=== PATIENT | female | born 2000 | race Caucasian/White ===

== ENCOUNTER 2022-05-15 09:32 | Outpatient (CLI) | payer OTHER, SELFPAY ==
--- OUTSIDE RECORDS SUMMARY | 2022-05-15 09:36 | XMS_ITS | Clinical Summary ---
:2000 Author Organization [facility] [place] [address] Care Team Providers Name Role Phone Clinic, No Pcp Or Primary Care Provider Unavailable Allergies Active Allergy Reactions Severity Noted Date Comments Pollen Extracts Runny Nose Low 11/17/2020 Medications Medication Sig Dispensed Refills Start Date End Date Status EPINEPHrine Inject 0.3 mg 2 Each 1 10/24/2019 [place] (EPIPEN) 0.3 mg/0.3 intramuscular one mL time if needed for injectionIndication Allergic Reaction for s: Adverse food up to 1 dose. reaction, initial encounter Active Problems No known active problems Immunizations Name Administration Dates Next Due DTaP 01/29/2001, 2000 DTaP-HIB (TriHIBIT) 10/02/2006, 03/12/2006, 01/29/2001, 2000 [id number] (Pediarix) 03/12/2006 HIB-HepB (Comvax) 2000 HPV 9 (Gardasil 9) 04/29/2017, 02/06/2017 Hepatitis B (Peds) 05/27/2006, 03/12/2006, 2000 Inactivated Polio Vaccine 03/12/2006, 01/29/2001, 2000 MMR 11/21/2019, 05/27/2006, 03/12/2006 Meningococcal Vaccine (Menactra) 11/18/2013 Pneumococcal conj 7-Valent (Prevnar 7) 01/29/2001, 1 Tdap 09/16/2019, 11/18/2013 Varicella Vaccine 03/12/2006 Social History Tobacco Use Types Packs/Day Years Used Date Never Smoker Smokeless Tobacco: Never Used Tobacco Cessation: Counseling Given: Yes Alcohol Use Standard Drinks/Week Comments Never 0 (1 standard drink = 0.6 oz pure alcoho l) Alcohol Habits Answer Date Recorded How often do you have a drink containing alcohol? Never 10/24/2019 How many drinks containing alcohol do you have on a typical Not asked day when you are drinking? How often do you have six or more drinks on one occasion? No t asked Comment: Not asked Sex Assigned at Date Recorded Not on file Obstetrics History Para Term AB IAB SAB Ectopic Multiple Living Live Births 1 Date Outcome GA Total Labor/2nd/3rd Weight Sex Delivery Anes PTL Susan A 1 A5 Name Clin Labor Last Filed Vital Signs Vital Sign Reading Time Taken Comments Blood Pressure 98/64 03/17/2021 1:11 PM CDT Pulse 66 03/17/2021 1:11 PM CDT Temperature 37 ??C (98.6 ??F) 03/17/2021 1:11 PM CDT Respiratory Rate 12 03/17/2021 1:11 PM CDT Oxygen Saturation 99% 03/17/2021 1:11 PM CDT Inhaled Oxygen Concentration - - Weight 62.1 kg (137 lb) 03/17/2021 1:11 PM CDT Height - - Body Mass Index - - Plan of Treatment Health Maintenance Due Date Last Done Comments COVID-19 vaccine series (#1) 2000 Depression screening for age 1206/29/2012 12+ HPV series for age 9-26 (3 - 08/30/2017 04/29/2017, 3-dose series) 02/06/2017 BMI (ht and wt on same day) 06/29/2018 for age 18+ Hepatitis C screening for age 1206/29/2018 18-79 Chlamydia for age 16-24 06/19/2021 06/19/2020 Pap test for age 21-65 06/29/2021 Influenza for age 9-49 03/06/2022 Tetanus booster 09/15/2029 09/16/2019, 11/18/2013 Meningococcal series for age Aged Out 11/18/2013 No longer eligible based 11-21 on patient's age to complete this to [facility] Tdap Completed 09/16/2019, 11/18/2013 Results Not on filefrom Last 3 Months Insurance Payer Benefit Plan / Subscriber ID Effective Dates Phone Addre ss Type [facility] [id number] 2018-Presen [address] [place] [address] [facility] [id number] 2020-Present [address] [facility] [place] [address] Care Teams Batch Tester Relationship Specialty Start Date End Date Clinic, No Pcp Or PCP - General 11/17/20 .
[2022-05-15 15:30] LABS: Clue Cells No Clue Cells Seen (None Seen); Trichomonas No Trichomonas Seen (None Seen); Yeast No Yeast Seen (None Seen)
[2022-05-15 15:51] LABS: GC DNA Amplified* NOT DETECTED (No Detected)
[2022-05-15 16:48] LABS: Hepatitis C Virus Antibody* Negative (Negative)
[2022-05-15 16:49] LABS: HIV 1/2/P24 Combo Screen* Negative (Negative)
[2022-05-15 17:05] LABS: Chlamydia DNA Amplified* DETECTED (No Detected)
[2022-05-16 15:37] LABS: Rapid Plasma Reagin (RPR) Non Reactive (Non Reactive)
== END 2022-05-15 09:33 | disposition home or self-care (01) ==
PROVIDERS: PCP Nurse Practitioner Family; Visit Provider Nurse Practitioner Family
DX: Z11.3 Encounter for screening for infections with a predominantly sexual mode of transmission (principal)
CPT/HCPCS: 36415; 86592; 86703; 86803; 87210; 87491; 87591; 88174

== ENCOUNTER 2023-01-01 15:57 | Outpatient (CLI) | payer OTHER, SELFPAY ==
[2023-01-01 22:12] LABS: Clue Cells No Clue Cells Seen (None Seen); Trichomonas No Trichomonas Seen (None Seen); Yeast No Yeast Seen (None Seen)
[2023-01-01 23:53] LABS: Chlamydia DNA Amplified* NOT DETECTED (No Detected); GC DNA Amplified* NOT DETECTED (No Detected)
== END 2023-01-01 15:58 | disposition home or self-care (01) ==
PROVIDERS: PCP Nurse Practitioner Family; Visit Provider Nurse Practitioner Family
DX: R10.2 Pelvic and perineal pain (principal)
CPT/HCPCS: 81015; 86592; 86703; 86803; 87086; 87210; 87491; 87591